=== PATIENT | male | born 1970 ===

== ENCOUNTER 2018-07-14 11:16 | Emergency (ER) | payer BC ==
--- NOTE | 2018-07-14 11:32 | ED PDOC ---
Arrival/HPI - General Chief Complaint: High Blood Sugar Time Seen by Provider: 07/14/18 11:18 Historian: Patient, Spouse - History of Present Illness Narrative History of Present Illness (Text): 07/14/18 11:31 A 47 year old male, whose past medical history includes hypertension, hyperlipidemia, and diabetes, presents to the emergency department accompanied by spouse complaining of high blood sugar since a few weeks ago. Patient reports he is experiencing pain when swallowing, sore throat, slight dizziness, weakness and cough. Patient's spouse reports they were visiting their PMD today at the clinic when the physician noticed his blood sugar was significantly high and a rapid strep throat test was positive, prompting the physician to urge patient to come to the Emergency room. PMD, Dr. Cronin, administered 10 units of novalog to pateint prior to arrival. Patient notes he has not been consistently taking his medications or insulin. Patient denies any fever, chills , shortness of breath, chest pain, diarrhea, nausea, vomiting, urinary symptoms, back pain, neck pain, headache, dizziness, or any other complaints. PMD: Dr. Yanet Cronin Time/Duration: > week (a few weeks) Symptom Onset: Gradual Symptom Course: Unchanged Activities at Onset: Light Context: Home Past Medical History - Provider Review Nursing Documentation Reviewed: Yes - Cardiac Hx Cardiac Disorders: Yes Hx Hypertension: Yes - Pulmonary Hx Respiratory Disorders: No - Neurological Hx Neurological Disorder: Yes Hx Seizures: Yes - HEENT Hx HEENT Disorder: Yes Other/Comment: STREP THROAT - Renal Hx Renal Disorder: No - Endocrine/Metabolic Hx Endocrine Disorders: Yes Hx Diabetes Mellitus Type 2: Yes - Hematological/Oncological Hx Blood Disorders: No - Integumentary Hx Dermatological Disorder: No - Musculoskeletal/Rheumatological Hx Musculoskeletal Disorders: No - Gastrointestinal Hx Gastrointestinal Disorders: No - Genitourinary/Gynecological Hx Genitourinary Disorders: No - Psychiatric Hx Psychophysiologic Disorder: No Hx Substance Use: No Family/Social History - Physician Review Nursing Documentation Reviewed: Yes Family/Social History: Unknown Family HX Smoking Status: Never Smoked Hx Alcohol Use: No Hx Substance Use: No Allergies/Home Meds Allergies/Adverse Reactions: Allergies No Known Allergies Allergy (Verified 07/14/18 11:22) Home Medications: Home Meds Medication Instructions Recorded Confirmed Empagliflozin [Jardiance] 25 mg PO DAILY 07/14/18 07/14/18 Lisinopril/Hydrochlorothiazide 1 each PO DAILY 07/14/18 07/14/18 [Lisinopril-Hctz 10-12.5 mg Tab] Lisinopril/Hydrochlorothiazide 1 tab PO DAILY 07/14/18 07/14/18 [Zestoretic 20-12.5 mg Tablet] Simvastatin [Zocor] 20 mg PO DAILY 07/14/18 07/14/18 Sitagliptin Phos/Metformin HCl 1 tab PO DAILY 07/14/18 07/14/18 [Janumet 50-500 mg Tablet] levETIRAcetam [Keppra] 500 mg PO DAILY 07/14/18 07/14/18 Review of Systems - Physician Review All systems were reviewed & negative as marked: Yes - Review of Systems Constitutional: absent: Fevers, Night Sweats ENT: Sore Throat, Other (+pain when swallowing). absent: Hearing Changes, Tinnitus, TMJ Pain, Voice Changes, Rhinorrhea, Epistaxis, Sinus Congestion Respiratory: Cough. absent: SOB Cardiovascular: absent: Chest Pain Gastrointestinal: absent: Diarrhea, Nausea, Vomiting Musculoskeletal: absent: Back Pain, Neck Pain Neurological: Dizziness (slight dizziness), Focal Weakness. absent: Headache, Gait Changes, Speech Changes, Facial Droop, Disequilibrium, Seizure Physical Exam Vital Signs Reviewed: Yes Vital Signs Temp Pulse Resp BP Pulse Ox 07/14/18 15:15 98.3 F 80 18 151/84 H 100 07/14/18 14:27 88 155/105 H 07/14/18 14:00 88 18 145/80 98 07/14/18 12:16 91 H 18 155/96 H 97 07/14/18 11:27 98.2 F 100 H 17 163/100 H 94 L 07/14/18 11:22 98.2 F 100 H 17 163/100 H 94 L Temperature: Afebrile Blood Pressure: Hypertensive Pulse: Tachycardic Respiratory Rate: Normal Appearance: Positive for: Well-Appearing, Non-Toxic, Comfortable Pain Distress: None Mental Status: Positive for: Alert and Oriented X 3 Finger Stick Blood Glucose: 500 - Systems Exam Head: Present: Atraumatic, Normocephalic Pupils: Present: PERRL Extroacular Muscles: Present: EOMI Conjunctiva: Present: Normal Mouth: Present: Moist Mucous Membranes Pharnyx: Present: Normal Neck: Present: Normal Range of Motion Respiratory/Chest: Present: Clear to Auscultation, Good Air Exchange. No: Respiratory Distress, Accessory Muscle Use Cardiovascular: Present: Regular Rate and Rhythm, Normal S1, S2. No: Murmurs Abdomen: No: Tenderness, Distention, Peritoneal Signs Back: Present: Normal Inspection Upper Extremity: Present: Normal Inspection. No: Cyanosis, Edema Lower Extremity: Present: Normal Inspection. No: Edema Neurological: Present: GCS=15, CN II-XII Intact, Speech Normal Skin: Present: Warm, Dry, Normal Color. No: Rashes Psychiatric: Present: Alert, Oriented x 3, Normal Insight, Normal Concentration Medical Decision Making ED Course and Treatment: 07/14/18 11:37 Impression: 47 year old male presenting to the Emergency department complaining of high blood sugar. Differential Diagnosis included but are not limited to: DKA vs. Pharyngitis Plan: -- Venous blood gas -- EKG -- BMP -- Magnesium -- CBC -- Chest X-ray -- IV Fluids -- Blood Culture -- Urine Culture -- Rapid Strep Group A Antigen -- Urinalysis -- Reassess and disposition Progress Notes: 07/14/18 11:45 EKG: Ordered, reviewed, and independently interpreted the EKG. Rate : 92 BPM Rhythm : NSR Interpretation : No ST-segment elevations or depressions, no T-wave inversions, normal intervals. Comparison : No previous EKG for comparison. 07/14/18 12:01 Dictator: Lela Queen MD Procedure: Chest X-ray Impression: No acute pulmonary disease. 07/14/18 12:58 Strep negative in the ED today. Case discussed with Dr. Cronin, Patient's PMD, who is aware patient is in emergency room and states patient, if discharged, could follow up in her office as soon as possible. She stated she got a positive Strep test result in her office so she recommends Augmentin. 07/14/18 15:15 Repeat FS 159 after 3 L of NS and the 7 units of Regular Insulin given. Patient no longer has symptoms. He says his sore throat even feels better. He is tolerating PO fluids in ED. No n/v/d/c. I educated the patient on the importance of compliance of his medication because if he doesn't take care of his diabetes he can get very sick with heart disease, renal disease, blindness, infection and many other comorbidites. I discussed with him and his a need for teaching that would require admission but he does not want to stay in the hospital. He promises to f/u with Dr. Jevon Cronin as soon as possible. - Critical Care Critical Care Minutes: 30 minutes - Lab Interpretations Lab Results: 07/14/18 12:00 07/14/18 12:00 Lab Results 07/14/18 15:11: POC Glucose (mg/dL) 159 H 07/14/18 13:51: POC Glucose (mg/dL) 256 H 07/14/18 12:20: Urine Color Light yellow, Urine Appearance Clear, Urine pH 6.0, Ur Specific [place] 1.010, Urine Protein Negative, Urine Glucose (UA) 500 H, Urine Ketones Negative, Urine Blood Negative, Urine Nitrate Negative, Urine Bilirubin Negative, Urine Urobilinogen 0.2, Ur Leukocyte Esterase Negative 07/14/18 12:00: Grp A Beta Strep Ag Negative 07/14/18 12:00: Sodium 137, Chloride 98, Potassium 4.5, Carbon Dioxide 24, Anion Gap 19, BUN 18, Creatinine 0.6 L, Est GFR ( Amer) > 60, Est GFR ( Non-Af Amer) > 60, Random Glucose 592 H*, Calcium 10.0, Magnesium 2.0 07/14/18 12:00: pO2 32, VBG pH 7.34, VBG pCO2 48.0, VBG HCO3 25.9, VBG Total CO2 27.4, VBG O2 Sat (Calc) 58.2, VBG Base Excess -0.4 L, VBG Potassium 4.6, Sodium 136.0, Chloride 97.0 L, Glucose 639 H*, Lactate 2.0, FiO2 21.0, Venous Blood Potassium 4.6 07/14/18 12:00: WBC 7.7, RBC 5.13, Hgb 16.0, Hct 45.6, MCV 88.9, MCH 31.2, MCHC 35.1, RDW 12.2, Plt Count 275, MPV 12.1 H, Gran % 70.0 H, Lymph % (Auto) 23.5, [place] % (Auto) 5.0, Eos % (Auto) 1.2 L, Baso % (Auto) 0.3, Gran # 5.42, Lymph # ( Auto) 1.8, [place] # (Auto) 0.4, Eos # (Auto) 0.1, Baso # (Auto) 0.02 - RAD Interpretation Radiology Orders: 07/14/18 11:32 CHEST PORTABLE [RAD] Stat - Medication Orders Current Medication Orders: Discontinued Medications Amoxicillin/Clavulanate Potassium (Augmentin 875 Mg-125 Mg Tab) 1 tab PO STAT STA PRN Reason: Protocol Stop: 07/14/18 14:06 Last Admin: 07/14/18 14:27 Dose: 1 tab Sodium Chloride (Sodium Chloride 0.9%) 1,000 mls @ 999 mls/hr IV .Q1H1M STA Stop: 07/14/18 12:36 Last Admin: 07/14/18 11:52 Dose: 999 mls/hr eMAR Start Stop Document 07/14/18 11:52 EWO (Rec: 07/14/18 11:52 ANJELICA [id number]) Intravenous Solution Start Date 07/14/18 Start Time 11:52 End Date 07/14/18 End time 12:52 Total Infusion Time 60 Sodium Chloride (Sodium Chloride 0.9%) 1,000 mls @ 999 mls/hr IV .Q1H1M STA Stop: 07/14/18 13:26 Last Admin: 07/14/18 12:33 Dose: 999 mls/hr eMAR Start Stop Document 07/14/18 12:33 EWO (Rec: 07/14/18 12:33 ANJELICA [id number]) Intravenous Solution Start Date 07/14/18 Start Time 12:33 End Date 07/14/18 End time 13:33 Total Infusion Time 60 Sodium Chloride (Sodium Chloride 0.9%) 1,000 mls @ 999 mls/hr IV .Q1H1M STA Stop: 07/14/18 14:51 Last Admin: 07/14/18 13:58 Dose: 999 mls/hr eMAR Start Stop Document 07/14/18 13:58 EWO (Rec: 07/14/18 13:59 WENDY [id number]) Intravenous Solution Start Date 07/14/18 Start Time 13:59 End Date 07/14/18 End time 14:59 Total Infusion Time 60 Insulin Human Regular (Humulin R) 7 units SC STAT STA Stop: 07/14/18 12:26 Last Admin: 07/14/18 12:32 Dose: 7 unit MAR Blood Glucose Document 07/14/18 12:32 EWO (Rec: 07/14/18 12:32 EWO [id number]) Blood Glucose Finger Stick Blood Glucose (70-120) 500 Subcutaneous Administrations Document 07/14/18 12:32 EWO (Rec: 07/14/18 12:32 EWO [id number]) Injection Site MAR Injection Site Left Deltoid Charges for Administration # of Subcutaneous Administrations 1 Lisinopril (Zestril) 5 mg PO STAT STA Stop: 07/14/18 14:05 Last Admin: 07/14/18 14:27 Dose: 5 mg MAR Pulse and Blood Pressure Document 07/14/18 14:27 EWO (Rec: 07/14/18 14:27 EW [id number]) Pulse Pulse Rate (60-90) 88 Blood Pressure Blood Pressure (100/60-150/90) 155/105 - Scribe Statement The provider has reviewed the documentation as recorded by the Randallibdemi Eric All medical record entries made by the Scribe were at my direction and personally dictated by me. I have reviewed the chart and agree that the record accurately reflects my personal performance of the history, physical exam, medical decision making, and the department course for this patient. I have also personally directed, reviewed, and agree with the discharge instructions and disposition. Disposition/Present on Arrival - Present on Arrival Any Indicators Present on Arrival: Yes History of DVT/PE: No History of Uncontrolled Diabetes: Yes Urinary Catheter: No History of Decub. Ulcer: No History Surgical Site Infection Following: None - Disposition Have Diagnosis and Disposition been Completed?: Yes Diagnosis: Uncontrolled diabetes mellitus, Hypertension Disposition: HOME/ ROUTINE Disposition Time: 15:15 Patient Plan: Discharge Condition: IMPROVED Discharge Instructions (ExitCare): Type 2 Diabetes, High Blood Pressure in Adults Additional Instructions: JEM SERRANO, thank you for letting us take care of you today. Your provider was Karlos Victoria DO and you were treated for Uncontrolled DM, Hypertension. The emergency medical care you received today was directed at your acute symptoms. If you were prescribed any medication, please fill it and take as directed. It may take several days for your symptoms to resolve. Return to the Emergency Department if your symptoms worsen, do not improve, or if you have any other problems. Please contact your doctor or call one of the physicians/clinics you have been referred to that are listed on the Patient Visit Information form that is included in your discharge packet. Bring any paperwork you were given at discharge with you along with any medications you are taking to your follow up visit. Our treatment cannot replace ongoing medical care by a primary care provider outside of the emergency department. Thank you for allowing the [facility] team to be part of your care today. If you had an X-Ray or CT scan: A Radiologist will review the ED reading if any change in treatment is needed we will contact you. If you had a blood, urine, or wound culture: It will take several days for the results, if any change in treatment is needed we will contact you. If you had an STI test: It will take 48 hours for the results. Please call after 1 week if you have not heard back. Prescriptions: Amoxicillin/Clavulanate [Augmentin 875 MG-125 MG] 1 tab PO BID #14 tab Referrals: Laura Cronin MD [Primary Care Provider] - Follow up with primary Forms: [employer] ([place]), WORK NOTE
[2018-07-14] MEDS ORDERED: Sodium Chloride 0.9% 1,000 ML IV STA ×3 (11:36→13:51)
--- NOTE | 2018-07-14 11:58 | RAD ---
Date of service: 07/14/2018 HISTORY: Sepsis Patient COMPARISON: No prior. FINDINGS: LUNGS: The lungs are well inflated and clear. PLEURA: No significant pleural effusion identified, no pneumothorax apparent. CARDIOVASCULAR: Normal. OSSEOUS STRUCTURES: No significant abnormalities. VISUALIZED UPPER ABDOMEN: Normal. OTHER FINDINGS: None. IMPRESSION: No active pulmonary disease.
[2018-07-14 12:06] LABS: BASO # 0.02 K/mm3 (0.0-2.0); BASO % 0.3 % (0.0-3.0); EOS # 0.1 (0.0-0.7); EOS % 1.2 % (1.5-5.0); GRAN # 5.42 (1.4-6.5); LYMPH # 1.8 (1.2-3.4); LYMPH % 23.5 % (22.0-35.0); MEAN CELL VOLUME 88.9 fl (80.0-105.0); MEAN CORPUSCULAR HEMOGLOBIN 31.2 pg (25.0-35.0); MEAN CORPUSCULAR HGB CONC 35.1 g/dl (31.0-37.0); MEAN PLATELET VOLUME 12.1 fl (7.0-11.0); MONO # 0.4 (0.1-0.6); RBC 5.13 10^6/uL (3.5-6.1); RED CELL DISTRIBUTION WIDTH 12.2 % (11.5-14.5); WHITE BLOOD COUNT 7.7 10^3/ul (4.5-11.0)
[2018-07-14 12:08] LABS: VENOUS BLOOD GAS BASE EXCESS -0.4 mmol/L (0.0-2.0); VENOUS BLOOD GAS PO2 32 mm/Hg (30-55); VENOUS BLOOD PH 7.34 (7.32-7.43)
[2018-07-14 12:17] VITALS: RESP 18
[2018-07-14 12:25] LABS: BLOOD UREA NITROGEN 18 mg/dL (7-21); GFR NON-AFRICAN AMERICAN > 60
[2018-07-14] MEDS ORDERED: Insulin Regular 1 UNITS/0.01 ML ML SC STA (12:25)
[2018-07-14 12:36] LABS: URINE BILIRUBIN NEGATIVE (NEGATIVE); URINE BLOOD NEGATIVE (NEGATIVE); URINE GLUCOSE (UA) 500 mg/dL (NEGATIVE); URINE LEUKOCYTE ESTERASE NEGATIVE Leu/uL (NEGATIVE); URINE PROTEIN NEGATIVE mg/dL (<30 mg/dL); URINE UROBILINOGEN 0.2 E.U./dL (<1 E.U./dL)
[2018-07-14 12:39] LABS: URINE APPEARANCE CLEAR (CLEAR); URINE COLOR LIGHT YELLOW (YELLOW)
[2018-07-14] MEDS ORDERED: Amoxicillin-Clav 875-125 mg Tab PO STA (14:05)
--- NOTE | 2018-07-14 14:37 | CARD ---
APPROVED REPORT Date of service: 07/14/2018 EKG Measurement Heart [id number] <Conclusion> Normal sinus rhythm Normal ECG
[2018-07-14 15:16] VITALS: BP 151/84; PULSE 80; TEMP 98.3; O2SAT 100
== END 2018-07-14 15:14 | disposition home or self-care (01) ==
LOC: ED 11:16
DX: E11.65 Type 2 diabetes mellitus with hyperglycemia (principal); I10 Essential (primary) hypertension; E78.5 Hyperlipidemia, unspecified
CPT/HCPCS: 71045; 80048; 81003; 82803; 82948; 83735; 85025; 87040; 87070; 87086; 87430; 93005; 96360; 96361; 99285; J7030